=== PATIENT | male | born 1955 | race Caucasian/White ===

== ENCOUNTER 2016-11-09 06:54 | Emergency (ER) | payer SELFPAY ==
[~2016-11-09] VITALS: Ht 190.5 cm; Wt 90.0 kg
[~2016-11-09 06:54] MED LIST: ASPI1TAB69 PO
[2016-11-09 06:55] VITALS: BP 131/71; PULSE 76; RESP 16; TEMP 98; O2SAT 97
--- NOTE | 2016-11-09 07:16 | PD ---
Physical Exam Date Seen by Provider: Nov 09, 2016 Narrative Pt seen in triage. VSS. States he has a cellulitis in his perineal area. Reports history of the same 4 years ago. No fevers, scant clear drainage noted. Pt awaiting bed placement. Data Data Last Documented VS Vital Signs Date Time Temp Pulse Resp B/P Pulse Ox O2 Delivery O2 Flow Rate FiO2 11/09/16 06:55 98.0 76 16 131/71 97 Room Air MDM Supervised Visit with CHERY: Melania Garcia Nov 09, 2016 07:16
[2016-11-22] MEDS ORDERED: ROSU20 PO ×2 (10:49→10:59)
== END 2016-11-09 09:32 | disposition left against medical advice (07) ==
LOC: NETRI 06:54
DX: L03.315 Cellulitis of perineum (principal)
CPT/HCPCS: 99282